=== PATIENT | male | born 1950 | race Caucasian/White ===

== ENCOUNTER 2019-12-01 10:08 | Emergency (ER) | payer MEDICARE ==
[~2019-12-01] VITALS: Ht 185.4 cm; Wt 77.7 kg
[2019-12-01] MEDS ORDERED: MORPHINE SULFATE 4 MG/ML, 1ML ONE (10:28)
[2019-12-01] MEDS ORDERED: ONDANSETRON 2MG/ML, 2ML ONE (10:28)
[2019-12-01] MEDS ORDERED: SODIUM CHLORIDE FLUSH 10ML SYR IVF ONE (10:30)
[2019-12-01] MEDS ORDERED: MORPHINE SULFATE 4 MG/ML, 1ML IVPush PRN (10:30)
[2019-12-01] MEDS ORDERED: ONDANSETRON 2MG/ML, 2ML IVPush ONE (10:30)
--- NOTE | 2019-12-01 10:45 | NUR ---
PT REPORTS CONTINUED L POSTERIOR RIB PAIN SECONDARY TO [facility] 11/24. ADMITTED TO [facility] FOR TWO NIGHTS FOLLOWING ACCIDENT. DC'D WITH PAIN MEDICATIONS AND IS. PT REPORTS THAT PAIN IS UNRESOLVED "I'M JUST NOT DOING WELL". PT ALSO PRESENTS WITH L ANKLE PAIN/SWELLING WHICH "WAS NEVER XRAY'D". ANKLE WITH SCABBED ABRASION, ERYTHEMA AND SWELLING NOTED. +CMS. BP/SPO2 MONITORING IN PLACE. IV ESTBALISHED. PT MEDICATED PER EMAR FOR 02/02 PAIN. PT ON 2L BY AL FOR SUPPORT WHILE OFF MONITORING FOR CT.
--- NOTE | 2019-12-01 11:20 | NUR ---
PT RETURNED FROM CT. REPORTS IMPROVED PAIN. SPO2 >90% ON 2L BY NC
--- NOTE | 2019-12-01 12:00 | NUR ---
assumed care of pt. as
--- NOTE | 2019-12-01 12:18 | NUR ---
pt a&ox4 gcs 15 c/o l rib pain r/t fx. will ask md for pain meds. sts diff breathing. plan to tx to [facility], aware and agrees: hemothorax. as
[2019-12-01] MEDS ORDERED: FENTANYL PF 100 MCG/2ML ONE (12:27)
[2019-12-01] MEDS ORDERED: FENTANYL PF 100 MCG/2ML IV ONE (12:30)
--- NOTE | 2019-12-01 12:36 | NUR ---
MEDS PER MAR FOR PAIN. VSS.
--- NOTE | 2019-12-01 12:43 | NUR ---
report called to adarsh ingram rendavide ed. as
--- NOTE | 2019-12-01 13:06 | NUR ---
REPORT RC'VD FROM TESS RICHEY. AWAITING TRANSPORT TO [facility].
--- NOTE | 2019-12-01 13:06 | NUR ---
report to lalit ingram. as
[2019-12-01 13:10] VITALS: BP 126/73
--- NOTE | 2019-12-01 13:19 | NUR ---
PT REQUESTING WATER OR ICE CHIPS; NPO PER ERP. LEMON SWABS PROVIDED. [facility] HERE TO TAKE PT TO [facility]. BEDSIDE REPORT GIVEN TO EMS. PT STABLE UPON TRANSER.
== END 2019-12-01 13:24 | disposition short-term general hospital (02) ==
LOC: ED 11:19
DX: S22.42XA Multiple fractures of ribs, left side, initial encounter for closed fracture (principal); S50.312A Abrasion of left elbow, initial encounter; S80.812A Abrasion, left lower leg, initial encounter; J94.2 Hemothorax; J98.11 Atelectasis; V29.9XXA Motorcycle rider (driver) (passenger) injured in unspecified traffic accident, initial encounter; Y93.89 Activity, other specified; Y92.411 Interstate highway as the place of occurrence of the external cause; Y99.8 Other external cause status
CPT/HCPCS: 71250; 73590; 96374; 96375; 99284; J2270; J2405; J3010

== ENCOUNTER 2020-09-07 13:15 | Day surgery (SDC) | payer MEDICARE ==
[~2020-09-07] VITALS: Ht 185.4 cm; Wt 79.0 kg
[2020-09-07] MEDS ORDERED: SPIR25TA PO (13:54)
[2020-09-07] MEDS ORDERED: CARV3.1212 PO (13:54)
[2020-09-07] MEDS ORDERED: LOSA25TA25 PO (13:54)
[2020-09-07] MEDS ORDERED: DIPHENHYDRAMINE 50 MG/ML, 1ML IVPush ONE (14:00)
[2020-09-07] MEDS ORDERED: SODIUM CHLORIDE 0.9% 1,000 ML IV SCH ×2 (14:00→16:30)
[2020-09-07 14:09] LABS: BASOPHILS % (AUTO) 1 % (0-1); EOSINOPHILS % (AUTO) 2 % (1-7); LYMPHOCYTES % (AUTO) 35 % (22-44); MEAN CORPUSCULAR HEMOGLOBIN 32.6 pg (27.5-34.5); MEAN PLATELET VOLUME 9.5 fL (7.4-10.4); MONOCYTES % (AUTO) 8 % (2-9); NEUTROPHILS % (AUTO) 54 % (42-75); PLATELET COUNT 228 x10^3/uL (130-400); RED BLOOD COUNT 5.17 x10^6/uL (4.38-5.82)
[2020-09-07 14:16] LABS: ANION GAP 5 mmol/L (5-15); CHLORIDE 105 mmol/L (98-107); MD NO
[2020-09-07] MEDS ORDERED: MIDAZOLAM 1 MG/ML, 5ML ONE (14:54)
[2020-09-07] MEDS ORDERED: HEPARIN 1,000 UNITS/ML, 10ML ONE (14:55)
[2020-09-07] MEDS ORDERED: FENTANYL PF 100 MCG/2ML ONE (14:55)
[2020-09-07] MEDS ORDERED: VERAPAMIL 2.5 MG/ML, 2ML ONE (14:55)
[2020-09-07] MEDS ORDERED: LIDOCAINE-MPF 1%, 5ML ONE (14:55)
== END 2020-09-07 17:05 | disposition home or self-care (01) ==
LOC: CACL 13:15
PROVIDERS: ATTEND Internal Medicine Cardiovascular Disease
DX: I42.8 Other cardiomyopathies (principal); J44.9 Chronic obstructive pulmonary disease, unspecified; F17.210 Nicotine dependence, cigarettes, uncomplicated; Z79.899 Other long term (current) drug therapy
CPT/HCPCS: 36415; 80048; 82330; 82803; 82947; 83880; 84132; 84295; 85014; 85025; 93460; 99156; 99157; C1769; C1894; J1644; J2250; J3010; Q9967